=== PATIENT | female | born 1990 | race Caucasian/White ===

== ENCOUNTER 2017-04-26 15:44 | Emergency (ER) | payer MEDICAID, OTHER ==
[2017-04-26 15:49] VITALS: RESP 16
[2017-04-26] MEDS ORDERED: Sodium Chloride 0.9% 1,000 ML IV STA (16:21)
--- NOTE | 2017-04-26 16:23 | ED PDOC ---
HPI: Abdomen Time Seen by Provider: 04/26/17 15:52 Chief Complaint (Nursing): Abdominal Pain Chief Complaint (Provider): abdominal pain History Per: Patient Additional Complaint(s): 26-year-old female with no past medical history presents to emergency department with acute onset of lower abdominal pain. Patient states that she was at work and she got up to use the bathroom, and right after urinating she felt a sharp pain to lower abdomen. Patient called ambulance and was brought to ED immediately. Patient states several years ago she was told that she has ovarian cysts. She denies any vaginal bleeding or discharge. Patient denies any concern for STD. No associated fever or chills, nausea, vomiting or diarrhea. She rates pain upon arrival as a 10 out of 10. Past Medical History Reviewed: Historical Data, Nursing Documentation, Vital Signs Vital Signs: Last Vital Signs Temp 99.1 F 04/26/17 15:47 Pulse 88 04/26/17 15:47 Resp 16 04/26/17 15:47 BP 123/60 04/26/17 15:47 Pulse Ox 99 04/26/17 17:46 - Medical History PMH: Depression - Family History Family History: States: No Known Family Hx - Living Arrangements Living Arrangements: With Family - Social History Current smoker - smoking cessation education provided: No Alcohol: None Drugs: Denies - Home Medications Home Medications: Ambulatory Orders Medication Instructions Recorded Ibuprofen [Motrin] 600 mg PO Q6 PRN #15 tab 04/26/17 Nitrofurantoin Macrocrystals 100 mg PO BID #14 cap 04/26/17 [Macrobid] - Allergies Allergies/Adverse Reactions: Allergies Allergy/AdvReac Type Severity Reaction Status Date / Time No Known Allergies Allergy Verified 04/26/17 15:46 Review of Systems ROS Statement: Except As Marked, All Systems Reviewed And Found Negative Constitutional: Negative for: Fever Cardiovascular: Negative for: Chest Pain Gastrointestinal: Positive for: Abdominal Pain. Negative for: Nausea, Vomiting , Diarrhea, Constipation Genitourinary Female: Positive for: Pelvic Pain. Negative for: Vaginal Discharge, Vaginal Bleeding Physical Exam - Reviewed Nursing Documentation Reviewed: Yes Vital Signs Reviewed: Yes - Physical Exam Appears: Positive for: Well, Non-toxic, No Acute Distress Head Exam: Positive for: NORMOCEPHALIC Skin: Positive for: Normal Color Eye Exam: Positive for: Normal appearance Cardiovascular/Chest: Positive for: Regular Rate, Rhythm Respiratory: Positive for: Normal Breath Sounds. Negative for: Wheezing, Respiratory Distress Gastrointestinal/Abdominal: Positive for: Tenderness (suprapubic and bilateral adnexal regions, no rebound or guarding) Back: Positive for: Normal Inspection. Negative for: L CVA Tenderness, R CVA Tenderness Extremity: Positive for: Normal ROM. Negative for: Pedal Edema Neurologic/Psych: Positive for: Alert, Oriented - Laboratory Results Result Diagrams: 04/26/17 16:41 04/26/17 16:41 Urine POC: Negative Urine dip results: Positive for: Leukocyte Esterase (small), Blood (small) - ECG O2 Sat by Pulse Oximetry: 99 Pulse Ox Interpretation: Normal - Other Rad Transvaginal US X-Ray: Read By Radiologist X-Ray Interpretation: trace free fluid, no torsion Medical Decision Making Medical Decision Makin26 year old with acute onset of lower abdominal pain Plan: Transvaginal US - rule out torsion CBC CMP UA GC/CHL cultures IVF IV toradol US is normal. Pain resolved completely after toradol. Upon repeat examination , abdominal exam is now benign, patient feels much better. Leukocytes noted in urine, prescription given for Macrobid and Motrin. Patient was advised to drink plenty of fluids. Patient denies any concern for STD but agrees with sending cultures for gonorrhea and Chlamydia as precaution. Patient aware that if culture is positive, she will receive a phone call. Patient was referred to women[facility] clinic for follow-up. Disposition - Clinical Impression Clinical Impression: Urinary tract infection, Pelvic pain - Patient ED Disposition Is Patient to be Admitted: No Counseled Patient/Family Regarding: Studies Performed, Diagnosis, Need For Followup, Rx Given - Disposition [facility]errals: [facility] [Outside] Disposition: Routine/Home Disposition Time: 18:41 Condition: IMPROVED Additional Instructions: Take rx meds as directed. Drink plenty of fluids. Follow-up with women's clinic or [facility] in 2-3 days. Prescriptions: Ibuprofen [Motrin] 600 mg PO Q6 PRN #15 tab PRN Reason: Pain, Moderate (4-7) Nitrofurantoin Macrocrystals [Macrobid] 100 mg PO BID #14 cap Instructions: Urinary Tract Infection in Women (ED), Pelvic Pain in Women (ED) Results - Lab Results Lab Results: 0604/26/17 04/26/17 17:20 16:41 16:41 WBC 11.9 H RBC 4.34 Hgb 13.0 Hct 38.5 MCV 88.8 MCH 30.1 MCHC 33.9 RDW 12.8 Plt Count 286 MPV 8.5 Neut % (Auto) 69.8 Lymph % (Auto) 20.3 [place] % (Auto) 8.4 Eos % (Auto) 0.9 Baso % (Auto) 0.6 Neut # 8.3 H Lymph # 2.4 [place] # 1.0 H Eos # 0.1 Baso # 0.1 Sodium 139 Potassium 4.4 Chloride 102 Carbon Dioxide 27 Anion Gap 15 BUN 12 Creatinine 0.6 L Est GFR ( Amer) > 60 Est GFR (Non-Af Amer) > 60 Random Glucose 96 Calcium 9.2 Total Bilirubin 0.5 AST 29 ALT 41 Alkaline Phosphatase 78 Total Protein 7.9 Albumin 4.7 Globulin 3.2 Albumin/Globulin Ratio 1.4 Urine Color Yellow Urine Clarity Clear Urine pH 7.0 Ur Specific [place] 1.017 Urine Protein Negative Urine Glucose (UA) Neg Urine Ketones Negative Urine Blood Small Urine Nitrate Negative Urine Bilirubin Negative Urine Urobilinogen 0.2-1.0 Ur Leukocyte Esterase Mod Urine RBC (Auto) 12 H Urine Microscopic WBC 3 Ur Squamous Epith Cells 3 Calcium Oxalate Crystal Rare
[2017-04-26 16:53] LABS: BASO # 0.1 K/uL (0.0-0.2); BASO % 0.6 % (0.0-2.0); EOS # 0.1 K/uL (0.0-0.7); EOS % 0.9 % (0.0-4.0); HEMATOCRIT 38.5 % (34.0-47.0); LYMPH # 2.4 K/uL (1.0-4.3); LYMPH % 20.3 % (20.0-40.0); MEAN CELL VOLUME 88.8 fl (81.0-99.0); MEAN CORPUSCULAR HEMOGLOBIN 30.1 pg (27.0-31.0); MEAN CORPUSCULAR HGB CONC 33.9 g/dL (33.0-37.0); MEAN PLATELET VOLUME 8.5 fl (7.2-11.7); MONO % 8.4 % (0.0-10.0); NEUT # 8.3 K/uL (1.8-7.0); NEUT % 69.8 % (50.0-75.0); NRBC % 0.1 % (0.0-0.0); RED CELL DISTRIBUTION WIDTH 12.8 % (11.5-14.5); WHITE BLOOD COUNT 11.9 K/uL (4.8-10.8)
[2017-04-26 17:11] LABS: ALB/GLOB RATIO 1.4 (1.0-2.1); ALKALINE PHOSPHATASE 78 U/L (38-126); ALT/SGPT 41 U/L (9-52); AST/SGOT 29 U/L (14-36); BILIRUBIN,TOTAL 0.5 mg/dl (0.2-1.3); BLOOD UREA NITROGEN 12 mg/dl (7-17); CALCIUM 9.2 mg/dL (8.4-10.2); CARBON DIOXIDE 27 mmol/L (22-30); CHLORIDE 102 mmol/L (98-107); GFR AFRICAN-AMERICAN > 60; GLUCOSE,RANDOM 96 mg/dL (65-105); POTASSIUM 4.4 MMOL/L (3.6-5.0); SODIUM 139 mmol/l (132-148); TOTAL PROTEIN 7.9 G/DL (6.3-8.2)
[2017-04-26 17:40] LABS: RBC URINE 12 /hpf (0-3); URINE BILIRUBIN NEGATIVE (NEGATIVE); URINE BLOOD SMALL (NEGATIVE); URINE CALCIUM OXALATE CRYSTALS RARE /hpf (<OCC); URINE COLOR YELLOW (YELLOW); URINE GLUCOSE (UA) NEG (Normal); URINE KETONE NEGATIVE (NEGATIVE); URINE LEUKOCYTE ESTERASE MOD Leu/uL (Negative); URINE PROTEIN NEGATIVE (NEGATIVE); URINE UROBILINOGEN 0.2-1.0 mg/dL (0.2-1.0); WBC URINE 3 /hpf (0-5)
--- NOTE | 2017-04-26 18:12 | US ---
HISTORY: acute onset of pelvic pain, rule out torsion COMPARISON: None available. TECHNIQUE: Transvaginal pelvic ultrasound FINDINGS: UTERUS: Measures 8.4 x 4.6 x 4.4 cm. Anteverted. ENDOMETRIUM: Measures 8 mm in diameter. CERVIX: No cervical abnormality identified. RIGHT OVARY: Measures 2.7 x 1.7 x 1.7 cm. Follicles. Blood flow is demonstrated. LEFT OVARY: Measures 3.3 x 1.7 x 2.8 cm. Follicles. Blood flow is demonstrated. FREE FLUID: Small pelvic free fluid. OTHER FINDINGS: None. IMPRESSION: Small pelvic free fluid.
[2017-04-26 19:04] VITALS: BP 122/73; PULSE 80; TEMP 98
[2017-04-26 19:07] VITALS: O2SAT 99
== END 2017-04-26 19:39 | disposition home or self-care (01) ==
LOC: H.ER 15:44
DX: N39.0 Urinary tract infection, site not specified (principal); R10.2 Pelvic and perineal pain

== ENCOUNTER 2017-08-28 15:45 | Emergency (ER) | payer MEDICAID ==
[2017-08-28 15:55] VITALS: BP 126/70; PULSE 86; RESP 16; TEMP 99.8; O2SAT 100
[2017-08-28] MEDS ORDERED: Alum-Mag Hydrox-Simethicone Susp (30 mL) PO ONE (16:14)
[2017-08-28] MEDS ORDERED: Sodium Chloride 0.9% 1,000 ML IV STA (16:14)
--- NOTE | 2017-08-28 16:23 | ED PDOC ---
HPI: General Adult Time Seen by Provider: 08/28/17 16:01 Chief Complaint (Nursing): Abdominal Pain History Per: Patient Additional Complaint(s): Pt. states for the past 3 weeks she's had ~10 episodes of non-bloody watery diarrhea/day and nausea (no vomiting). Pt. states 1.5 weeks ago she developed epigastric abdominal pain which is intermittent and is worse after eating. Pt. states she's had a decreased appetite that comes along with the pain. Denies recent travel, sick contacts, melena, hematochezia, BRBPR, fever, hematemesis, previous abdominal surgeries, chest pain, SOB. Past Medical History Reviewed: Historical Data, Nursing Documentation, Vital Signs Vital Signs: Last Vital Signs Temp 99.8 F H 08/28/17 15:53 Pulse 86 08/28/17 15:53 Resp 16 08/28/17 15:53 BP 126/70 08/28/17 15:53 Pulse Ox 100 08/28/17 16:24 - Medical History PMH: Depression, Gastritis Denies: Diabetes, Hepatitis, HIV, HTN, Seizures, Sexually Transmitted Disease - Family History Family History: States: No Known Family Hx - Immunization History Hx Tetanus Toxoid Vaccination: No Hx Influenza Vaccination: No Hx Pneumococcal Vaccination: No - Home Medications Home Medications: Ambulatory Orders Medication Instructions Recorded Ciprofloxacin [Cipro] 1 tab PO BID #14 tab 07/18/17 metroNIDAZOLE [Flagyl] 500 mg PO BID #14 tab 07/18/17 Dicyclomine [Bentyl] 20 mg PO Q8 PRN #15 tab 08/28/17 Famotidine [Pepcid] 20 mg PO DAILY PRN #14 tab 08/28/17 Ondansetron ODT [Zofran ODT] 4 mg PO TID #20 odt 08/28/17 - Allergies Allergies/Adverse Reactions: Allergies Allergy/AdvReac Type Severity Reaction Status Date / Time No Known Allergies Allergy Verified 08/28/17 15:53 Review of Systems ROS Statement: Except As Marked, All Systems Reviewed And Found Negative Gastrointestinal: Positive for: Nausea, Abdominal Pain, Diarrhea Physical Exam - Reviewed Nursing Documentation Reviewed: Yes Vital Signs Reviewed: Yes - Physical Exam Appears: Positive for: Well, Non-toxic, No Acute Distress Head Exam: Positive for: ATRAUMATIC, NORMAL INSPECTION, NORMOCEPHALIC Skin: Positive for: Normal Color, Warm. Negative for: Rash Eye Exam: Positive for: EOMI, Normal appearance, PERRL ENT: Positive for: Normal ENT Inspection Neck: Positive for: Normal, Painless ROM Cardiovascular/Chest: Positive for: Regular Rate, Rhythm Respiratory: Positive for: CNT, Normal Breath Sounds Gastrointestinal/Abdominal: Positive for: Normal Exam, Bowel Sounds, Soft, Other (Negative Franco's sign.). Negative for: Tenderness Back: Positive for: Normal Inspection Extremity: Positive for: Normal ROM Neurologic/Psych: Positive for: Alert, Oriented. Negative for: Aphasia, Facial Droop - Laboratory Results Result Diagrams: 08/28/17 17:20 08/28/17 17:20 Urine POC: Negative - ECG O2 Sat by Pulse Oximetry: 100 - CT Scan/US Abd US Other Rad Studies (CT/US): Read By Radiologist (normal study) - Progress ED Course And Treament: Labs ordered. Abd US ordered. Zofran 4mg IV, pepcid 20mg IV, maalox 30ml PO, viscous lidocaine 15ml PO, IV NS bolus ordered. Re-evaluation Time: 18:25 (Pt. reports complete relief of abdominal pain. ) Condition: Re-examined, Improved Disposition - Clinical Impression Clinical Impression: Diarrhea, Abdominal pain - Patient ED Disposition Is Patient to be Admitted: No - Disposition Referrals: Joshua Collins MD, PhD [Staff Provider] - [facility] [Outside] Disposition: Routine/Home Disposition Time: 18:28 Condition: STABLE Prescriptions: Dicyclomine [Bentyl] 20 mg PO Q8 PRN #15 tab PRN Reason: abdominal pain Famotidine [Pepcid] 20 mg PO DAILY PRN #14 tab PRN Reason: Dyspepsia Ondansetron ODT [Zofran ODT] 4 mg PO TID #20 odt Instructions: Acute Diarrhea (ED), Acute Abdominal Pain (ED) Forms: [facility] [facility] ([place]ian) Print Language: SERBIAN
[2017-08-28] MEDS ORDERED: Alum-Mag Hydrox-Simethicone Susp (30 mL) ONE (17:19)
[2017-08-28 17:27] LABS: BASO % 0.4 % (0.0-2.0); EOS # 0.1 K/uL (0.0-0.7); EOS % 1.2 % (0.0-4.0); HEMATOCRIT 39.7 % (34.0-47.0); LYMPH # 2.4 K/uL (1.0-4.3); LYMPH % 22.9 % (20.0-40.0); MEAN CELL VOLUME 88.2 fl (81.0-99.0); MEAN CORPUSCULAR HEMOGLOBIN 29.7 pg (27.0-31.0); MEAN CORPUSCULAR HGB CONC 33.6 g/dL (33.0-37.0); MEAN PLATELET VOLUME 8.6 fl (7.2-11.7); MONO # 0.7 K/uL (0.0-0.8); NEUT # 7.1 K/uL (1.8-7.0); NEUT % 68.5 % (50.0-75.0); RED CELL DISTRIBUTION WIDTH 12.7 % (11.5-14.5); WHITE BLOOD COUNT 10.3 K/uL (4.8-10.8)
[2017-08-28 17:45] LABS: ALB/GLOB RATIO 1.4 (1.0-2.1); ALKALINE PHOSPHATASE 73 U/L (38-126); ALT/SGPT 31 U/L (9-52); AST/SGOT 29 U/L (14-36); BILIRUBIN,TOTAL 0.6 mg/dl (0.2-1.3); BLOOD UREA NITROGEN 11 mg/dl (7-17); CALCIUM 9.7 mg/dL (8.4-10.2); CARBON DIOXIDE 25 mmol/L (22-30); CHLORIDE 104 mmol/L (98-107); GFR AFRICAN-AMERICAN > 60; GLUCOSE,RANDOM 90 mg/dL (65-105); LIPASE 44 U/L (23-300); SODIUM 142 mmol/l (132-148); TOTAL PROTEIN 8.3 G/DL (6.3-8.2)
[2017-08-28 17:47] LABS: POTASSIUM 4.3 MMOL/L (3.6-5.0)
--- NOTE | 2017-08-28 17:50 | US ---
HISTORY: abdominal pain COMPARISON: None available. TECHNIQUE: Sonographic evaluation of the abdomen. FINDINGS: LIVER: Measures 15.4 cm in sagittal dimension and appears within normal limits of size, shape, and echotexture. No focal hepatic mass identified. The main portal vein appears patent with normal directional flow. No intrahepatic bile duct dilatation. GALLBLADDER: No gallstones. No gallbladder wall thickening. Negative sonographic Franco's sign as assessed by the slot machine department floorperson. COMMON BILE DUCT: Measures 3 mm. PANCREAS: Not well visualized. RIGHT KIDNEY: Measures 11.5 x 4.9 x 3.7cm. No obstructing calculus or hydronephrosis identified. LEFT KIDNEY: Measures 10.9 x 4.2 x 4.1cm. No obstructing calculus or hydronephrosis identified. SPLEEN: Measures approximately 9.7 cm. AORTA: Limited views appear unremarkable. IVC: Limited views appear unremarkable. OTHER FINDINGS: None. IMPRESSION: No acute findings.
[2017-08-28 18:01] LABS: RBC URINE 10 /hpf (0-3); URINE BILIRUBIN NEGATIVE (NEGATIVE); URINE BLOOD MODERATE (NEGATIVE); URINE COLOR YELLOW (YELLOW); URINE GLUCOSE (UA) NEG (Normal); URINE KETONE NEGATIVE (NEGATIVE); URINE LEUKOCYTE ESTERASE NEG Leu/uL (Negative); URINE PROTEIN NEGATIVE (NEGATIVE); URINE UROBILINOGEN 0.2-1.0 mg/dL (0.2-1.0); WBC URINE 1 /hpf (0-5)
== END 2017-08-28 18:42 | disposition home or self-care (01) ==
LOC: H.ER 15:45
DX: R10.9 Unspecified abdominal pain (principal); R19.7 Diarrhea, unspecified; R10.13 Epigastric pain
CPT/HCPCS: 76700; 80053; 81003; 81025; 83690; 85025; 96361; 96374; 96375; 99283; J2405; J7040

== ENCOUNTER 2017-11-20 13:39 | Emergency (ER) | payer MEDICAID | END 2017-11-20 14:30 | disposition left against medical advice (07) | LOC: H.ER 13:39 | DX: Z02.89 Encounter for other administrative examinations (principal) ==

== ENCOUNTER 2017-12-22 07:06 | Emergency (ER) | payer MEDICAID ==
--- NOTE | 2017-12-22 07:19 | ED PDOC ---
HPI: Female Pain Time Seen by Provider: 12/22/17 07:13 History Per: Patient Onset/Duration Of Symptoms: Days (1) Current Symptoms Are (Timing): Still Present Quality Of Discomfort: Burning Associated Symptoms: Urinary Symptoms Additional Complaint(s): Vaginal bleeding assoc with lower abd cramping started with burning on urination last night. Approx 10 weeks preg. Past Medical History - Medical History PMH: Depression, Gastritis Denies: Diabetes, Hepatitis, HIV, HTN, Seizures, Sexually Transmitted Disease - Family History Family History: States: Unknown Family Hx - Immunization History Hx Tetanus Toxoid Vaccination: No Hx Influenza Vaccination: No Hx Pneumococcal Vaccination: No - Home Medications Home Medications: Ambulatory Orders Medication Instructions Recorded Multivit/Folic Acid/I 1 tab PO DAILY 11/20/17 [ Plus] - Allergies Allergies/Adverse Reactions: Allergies Allergy/AdvReac Type Severity Reaction Status Date / Time No Known Allergies Allergy Verified 08/28/17 15:53 Review of Systems Gastrointestinal: Positive for: Abdominal Pain Genitourinary Female: Positive for: Dysuria, Vaginal Bleeding Physical Exam - Physical Exam Appears: Positive for: Non-toxic, No Acute Distress Skin: Positive for: Normal Color, Warm, DRY Gastrointestinal/Abdominal: Positive for: Bowel Sounds, Soft, Tenderness ( suprapubic) Pelvic Exam: Positive for: External Exam Normal. Negative for: Active Bleeding , Blood, Mass, Tender Adnexa, Tender Uterus Extremity: Positive for: Normal ROM - Laboratory Results Result Diagrams: 12/22/17 08:15 12/22/17 09:00 Disposition - Clinical Impression Clinical Impression: Threatened miscarriage - Patient ED Disposition Is Patient to be Admitted: No Counseled Patient/Family Regarding: Studies Performed, Diagnosis, Need For Followup - Disposition Disposition: Routine/Home Disposition Time: 11:44 Condition: FAIR Instructions: Threatened Miscarriage
[2017-12-22 08:20] VITALS: PULSE 97; RESP 18; TEMP 97.2; O2SAT 100
[2017-12-22 08:24] LABS: BASO % 0.3 % (0.0-2.0); EOS # 0.1 K/uL (0.0-0.7); EOS % 0.6 % (0.0-4.0); HEMOGLOBIN 12.5 g/dL (12.0-16.0); LYMPH # 1.6 K/uL (1.0-4.3); LYMPH % 16.8 % (20.0-40.0); MEAN CORPUSCULAR HEMOGLOBIN 30.5 pg (27.0-31.0); MEAN CORPUSCULAR HGB CONC 34.2 g/dL (33.0-37.0); MEAN PLATELET VOLUME 8.5 fl (7.2-11.7); MONO # 0.6 K/uL (0.0-0.8); MONO % 5.8 % (0.0-10.0); NEUT # 7.4 K/uL (1.8-7.0); NEUT % 76.5 % (50.0-75.0); NRBC % 0.1 % (0.0-0.0); RBC 4.12 Mil/uL (3.80-5.20); RED CELL DISTRIBUTION WIDTH 12.8 % (11.5-14.5); WHITE BLOOD COUNT 9.7 K/uL (4.8-10.8)
[2017-12-22 09:25] LABS: ALB/GLOB RATIO 1.3 (1.0-2.1); ALBUMIN 4.3 g/dL (3.5-5.0); ALT/SGPT 29 U/L (9-52); AST/SGOT 19 U/L (14-36); BLOOD UREA NITROGEN 7 mg/dl (7-17); CALCIUM 9.6 mg/dL (8.4-10.2); GFR AFRICAN-AMERICAN > 60; GFR NON-AFRICAN AMERICAN > 60
--- NOTE | 2017-12-22 13:50 | US ---
PROCEDURE: HISTORY: vag bleed COMPARISON: TECHNIQUE: FINDINGS: Single live intrauterine gestation with a crown-rump length of 2.8 centimeters corresponding to 9 weeks and 4 days gestational age. heart motion identified. Right ovary not identified. Left ovary within normal limits. IMPRESSION: As above
== END 2017-12-22 12:54 | disposition home or self-care (01) ==
LOC: H.ER 07:06
DX: O20.0 Threatened abortion (principal); F32.9 Major depressive disorder, single episode, unspecified

== ENCOUNTER 2018-01-23 18:50 | Emergency (ER) | payer MEDICAID ==
[2018-01-23 18:56] VITALS: TEMP 98.3; O2SAT 100
--- NOTE | 2018-01-23 20:19 | ED PDOC ---
HPI: Abdomen Time Seen by Provider: 01/23/18 19:16 Chief Complaint (Nursing): GI Problem Chief Complaint (Provider): Nausea, Vomiting, Abdominal Pain History Per: Patient History/Exam Limitations: no limitations Onset/Duration Of Symptoms: Other (throughout ) Current Symptoms Are (Timing): Still Present Additional Complaint(s): 27 y/o female with a pmhx of ovarian cysts, who presents to the ED complaining of nausea and vomiting in . Patient states she has had hyperemesis throughout this , but reports her nausea and vomiting are worse today. Also reports 2 episodes of clear discharge with the first 2 weeks ago. States her OB Dr. Avila advised her this is normal, but states she had a 2nd episode of discharge today. Denies vaginal bleeding. Also complaining of epigastric pain and lower abdominal pain consistent with what she experienced before when she had an ovarian cyst. . PMD: Dr. Rehman Past Medical History Reviewed: Historical Data, Nursing Documentation, Vital Signs Vital Signs: Last Vital Signs Temp 98.3 F 01/23/18 18:52 Pulse 88 01/23/18 23:59 Resp 16 01/23/18 23:59 BP 111/63 01/23/18 23:59 Pulse Ox 100 01/23/18 23:59 - Medical History PMH: Depression, Gastritis Denies: Diabetes, Hepatitis, HIV, HTN, Seizures, Sexually Transmitted Disease - Surgical History Other surgeries: Ovarian cyst removal - Family History Family History: States: Unknown Family Hx - Social History Current smoker - smoking cessation education provided: No Alcohol: None Drugs: Denies - Immunization History Hx Tetanus Toxoid Vaccination: No Hx Influenza Vaccination: No Hx Pneumococcal Vaccination: No - Home Medications Home Medications: Ambulatory Orders Medication Instructions Recorded Multivit/Folic Acid/I 1 tab PO DAILY 11/20/17 [ Plus] Nitrofurantoin Macrocrystals 100 mg PO BID #20 cap 12/22/17 [Macrobid] Doxylamine/Pyridoxine HCl (B6) 1 - 2 each PO HS #16 tablet. 01/23/18 [Rock Reynoso 10-10 mg Tablet] Famotidine [Pepcid] 20 mg PO Q12 #14 tab 01/23/18 - Allergies Allergies/Adverse Reactions: Allergies Allergy/AdvReac Type Severity Reaction Status Date / Time No Known Allergies Allergy Verified 01/23/18 18:52 Review of Systems ROS Statement: Except As Marked, All Systems Reviewed And Found Negative Gastrointestinal: Positive for: Nausea, Vomiting, Abdominal Pain Genitourinary Female: Negative for: Vaginal Bleeding Physical Exam - Reviewed Nursing Documentation Reviewed: Yes Vital Signs Reviewed: Yes - Physical Exam Appears: Positive for: Non-toxic, No Acute Distress, Uncomfortable Head Exam: Positive for: ATRAUMATIC, NORMAL INSPECTION, NORMOCEPHALIC Skin: Negative for: Normal Color (pale) Eye Exam: Positive for: EOMI, Normal appearance, PERRL ENT: Negative for: Normal ENT Inspection (mucous membranes dry) Neck: Positive for: Normal, Painless ROM, Supple Cardiovascular/Chest: Positive for: Regular Rate, Rhythm. Negative for: Murmur Respiratory: Positive for: Normal Breath Sounds. Negative for: Respiratory Distress Gastrointestinal/Abdominal: Positive for: Tenderness (epigastric tenderness) Back: Positive for: Normal Inspection. Negative for: L CVA Tenderness, R CVA Tenderness, Vertebral Tenderness Extremity: Positive for: Normal ROM. Negative for: Pedal Edema, Deformity Neurologic/Psych: Positive for: Alert, Oriented. Negative for: Motor/Sensory Deficits - Laboratory Results Result Diagrams: 01/23/18 20:15 01/23/18 20:15 - ECG O2 Sat by Pulse Oximetry: 100 (RA) Pulse Ox Interpretation: Normal Medical Decision Making Medical Decision Making: Time: 19:28 Initial Impression: 27 y/o female with abdominal pain, epigastric pain, and clear vaginal discharge in setting of 2nd trimester Initial Plan: --Beta-HCG --CMP --Urine --CBC --Pepcid 20 mg IV --[place] 10mg IVPB --Heplock insertion --Accucheck --Urinalysis --US Gallbladder --US OB Transvaginal --Reevaluation Scribe Attestation: Documented by Jayant Mahmood, acting as a scribe for Mitchel Messer MD. Provider Scribe Attestation: All medical record entries made by the Scribe were at my direction and personally dictated by me. I have reviewed the chart and agree that the record accurately reflects my personal performance of the history, physical exam, medical decision making, and the department course for this patient. I have also personally directed, reviewed, and agree with the discharge instructions and disposition. Disposition - Clinical Impression Clinical Impression: Gastritis, Abdominal pain, - Disposition Disposition: Routine/Home Disposition Time: 23:30 Condition: STABLE Prescriptions: Doxylamine/Pyridoxine HCl (B6) [Rock Reynoso 10-10 mg Tablet] 1 - 2 each PO HS # 16 tablet. Famotidine [Pepcid] 20 mg PO Q12 #14 tab Instructions: Gastritis, Round Ligament Pain Forms: [employer] (Finnish)
[2018-01-23 20:23] LABS: BASO % 0.4 % (0.0-2.0); EOS % 0.4 % (0.0-4.0); HEMOGLOBIN 12.3 g/dL (12.0-16.0); LYMPH # 1.9 K/uL (1.0-4.3); LYMPH % 22.4 % (20.0-40.0); MEAN CELL VOLUME 88.5 fl (81.0-99.0); MEAN CORPUSCULAR HEMOGLOBIN 30.6 pg (27.0-31.0); MEAN CORPUSCULAR HGB CONC 34.6 g/dL (33.0-37.0); MONO # 0.6 K/uL (0.0-0.8); NEUT # 6.1 K/uL (1.8-7.0); NEUT % 69.8 % (50.0-75.0); NRBC % 0.1 % (0.0-0.0); RBC 4.02 Mil/uL (3.80-5.20); RED CELL DISTRIBUTION WIDTH 12.7 % (11.5-14.5); WHITE BLOOD COUNT 8.7 K/uL (4.8-10.8)
[2018-01-23 20:34] LABS: ALB/GLOB RATIO 1.1 (1.0-2.1); ALT/SGPT 31 U/L (9-52); AST/SGOT 19 U/L (14-36); BLOOD UREA NITROGEN 6 mg/dl (7-17); CALCIUM 9.3 mg/dL (8.4-10.2); GFR AFRICAN-AMERICAN > 60; GFR NON-AFRICAN AMERICAN > 60
[2018-01-23 20:42] LABS: SQUAMOUS EPITHIAL 1 /hpf (0-5); URINE BACTERIA RARE (<OCC); URINE BILIRUBIN NEGATIVE (NEGATIVE); URINE BLOOD NEGATIVE (NEGATIVE); URINE CLARITY SLIGHTY-CLOUDY (Clear); URINE COLOR YELLOW (YELLOW); URINE GLUCOSE (UA) >=500 mg/dL (Normal); URINE LEUKOCYTE ESTERASE NEG Leu/uL (Negative); URINE PROTEIN 30 mg/dL (NEGATIVE); URINE UROBILINOGEN 0.2-1.0 mg/dL (0.2-1.0)
--- NOTE | 2018-01-23 22:53 | US ---
EXAM: US Abdomen Limited, Right Upper Quadrant EXAM DATE/TIME: 01/23/2018 7:43 PM CLINICAL HISTORY: 27 years old, female; Pain; Abdominal pain; Epigastric; ; Additional info: Ruq pain TECHNIQUE: Real-time ultrasound of the right upper quadrant with image documentation. COMPARISON: There are no prior studies for comparison. FINDINGS: Liver: There is hepatopedal flow in the main portal vein. Liver is unremarkable. Gallbladder: Gallbladder is only partially distended with no stones, sludge or wall thickening. Common bile duct: Common bile duct measures approximate 4 mm in diameter. Pancreas: Pancreas is partially obscured by bowel gas. Right kidney: Right kidney is unremarkable. Aorta: Visualized portions of the aorta and inferior vena cava are unremarkable. IMPRESSION: No gallstones or ductal dilatation Patient was not tender over the gallbladder
--- NOTE | 2018-01-23 22:59 | US ---
EXAM: US After First Trimester, Transabdominal EXAM DATE/TIME: 01/23/2018 7:29 PM CLINICAL HISTORY: 27 years old, female; Signs and symptoms; Lmp 10/16/17; Antepartum complications; Other: Vomotting; ; Additional info: Preg vag bld TECHNIQUE: Real-time transabdominal obstetrical ultrasound of the maternal pelvis and a second or third trimester with image documentation. COMPARISON: Prior images are not available for review. FINDINGS: Fetus: There is a single living intrauterine gestation in cephalic presentation Heart rate: There is a heart rate of 150 beats per minute. Placenta: Placenta is fundal. There is no previa. Amniotic fluid: Amniotic fluid volume appears normal. Anatomy: Early gestational age limits evaluation of anatomy BIOMETRICS Gestational age by US: 14 weeks 3 days EFW: 91.3 g, 34.7% BPD: 2.76 cm, 14 weeks 6 days HC: 9.97 cm, 14 weeks 4 days AC: 7.33 cm, 13 weeks 6 days FL: 1.47 cm, 14 weeks 2 days MATERNAL: Cervix: Cervix measures approximately 5 cm in length Free fluid: There is no free fluid. IMPRESSION: 14 week 3 day single living cephalic fetus, estimated date of delivery 07/21/18
[2018-01-24 00:01] VITALS: BP 111/63; PULSE 88; RESP 16
== END 2018-01-23 23:59 | disposition home or self-care (01) ==
LOC: H.ER 18:50
DX: O26.892 Other specified pregnancy related conditions, second trimester (principal); O99.612 Diseases of the digestive system complicating pregnancy, second trimester; Z3A.14 14 weeks gestation of pregnancy; K29.70 Gastritis, unspecified, without bleeding; O99.342 Other mental disorders complicating pregnancy, second trimester; F32.9 Major depressive disorder, single episode, unspecified
CPT/HCPCS: 76705; 76815; 80053; 81003; 81025; 83690; 84702; 85025; 96374; 96375; 99284; J2765

== ENCOUNTER 2018-02-16 20:25 | Emergency (ER) | payer MEDICAID ==
[2018-02-16 21:02] VITALS: BMI 31.0
[2018-02-16 21:25] LABS: BASO % 0.4 % (0.0-2.0); EOS # 0.1 K/uL (0.0-0.7); EOS % 0.9 % (0.0-4.0); HEMOGLOBIN 10.6 g/dL (12.0-16.0); LYMPH # 1.9 K/uL (1.0-4.3); LYMPH % 21.8 % (20.0-40.0); MEAN CELL VOLUME 89.6 fl (81.0-99.0); MEAN CORPUSCULAR HEMOGLOBIN 31.7 pg (27.0-31.0); MEAN CORPUSCULAR HGB CONC 35.4 g/dL (33.0-37.0); MONO # 0.7 K/uL (0.0-0.8); MONO % 7.5 % (0.0-10.0); NEUT # 6.1 K/uL (1.8-7.0); NEUT % 69.4 % (50.0-75.0); RBC 3.35 Mil/uL (3.80-5.20); RED CELL DISTRIBUTION WIDTH 12.9 % (11.5-14.5); WHITE BLOOD COUNT 8.8 K/uL (4.8-10.8)
[2018-02-16 21:29] LABS: SQUAMOUS EPITHIAL < 1 /hpf (0-5); URINE BILIRUBIN NEGATIVE (NEGATIVE); URINE BLOOD SMALL (NEGATIVE); URINE CLARITY CLEAR (Clear); URINE COLOR STRAW (YELLOW); URINE GLUCOSE (UA) 50 mg/dL (Normal); URINE LEUKOCYTE ESTERASE NEG Leu/uL (Negative); URINE PROTEIN NEGATIVE (NEGATIVE); URINE UROBILINOGEN 0.2-1.0 mg/dL (0.2-1.0)
--- NOTE | 2018-02-16 21:54 | OBHP ---
Datetime: 02/16/2018 21:05 IP Adm Impression: , intrauterine ; No Active Labor; Intact Membranes IP Admit Plan: Observation/Evaluation Admit Comment, IP Provider: This is 27 y/o F, , comes to the clinic c/o right side lower back pa in and bleeding (Annotations: Data stored by CPN on behalf of user) Pelvic Type - PN: Adequate Extremities - PN: Normal Abdomen - PN: Normal Back - PN: Normal Lungs - PN: Normal Heart - PN: Normal Neurologic - PN: Normal HEENT - PN: Normal General - PN: Normal Comments, ACOG Physical Exam: No Bleeding Doppler U/S: + for heartbeats Vital Signs Provider: Reviewed; Within Normal Limits IP Chief Complaint: Decreased movement; Vaginal bleeding Genitourinary Exam: Normal
[2018-02-17 03:31] VITALS: BP 122/69; PULSE 108; O2SAT 96
== END 2018-02-16 22:35 | disposition home or self-care (01) ==
LOC: H.EROB2 20:25
DX: O26.92 Pregnancy related conditions, unspecified, second trimester (principal); M54.5 Low back pain; O20.9 Hemorrhage in early pregnancy, unspecified; Z3A.18 18 weeks gestation of pregnancy

== ENCOUNTER 2018-05-05 12:06 | Emergency (ER) | payer MEDICAID ==
[2018-05-05 12:48] VITALS: BMI 27.4
[2018-05-05] MEDS ORDERED: Lactated Ringer's 1,000 ML IV SCH ×2 (13:00→15:00)
[2018-05-05 14:02] LABS: SQUAMOUS EPITHIAL 16 /hpf (0-5); URINE BACTERIA RARE (<OCC); URINE BILIRUBIN NEGATIVE (NEGATIVE); URINE BLOOD SMALL (NEGATIVE); URINE CLARITY CLOUDY (Clear); URINE COLOR YELLOW (YELLOW); URINE GLUCOSE (UA) 50 mg/dL (Normal); URINE LEUKOCYTE ESTERASE NEG Leu/uL (Negative); URINE PROTEIN 30 mg/dL (NEGATIVE); URINE UROBILINOGEN 0.2-1.0 mg/dL (0.2-1.0)
--- NOTE | 2018-05-05 16:11 | US ---
PROCEDURE: Ultrasound of the Kidneys HISTORY: Abdominal pain to groin COMPARISON: Abdominal ultrasound dated 08/28/2017. TECHNIQUE: Sonogram of the kidneys. FINDINGS: RIGHT KIDNEY: Measures: 11.9 x 5.3 x 6.4 cm. Normal in size, contour and echogenicity. No stone, solid mass lesion or hydronephrosis visualized. LEFT KIDNEY: Measures: 11.6 x 4.1 x 4.7 cm. Normal in size, contour and echogenicity. No stone, solid mass lesion or hydronephrosis visualized. OTHER FINDINGS: None. IMPRESSION: Unremarkable renal sonogram.
[2018-05-05 21:36] VITALS: BP 93/47; PULSE 79; RESP 18; O2SAT 100
--- NOTE | 2018-05-05 22:37 | OBHP ---
Datetime: 05/05/2018 13:54 IP Adm Impression: , intrauterine IP Chief Complaint Other: Abdominal Pain to groin Admit Comment, IP Provider: Pt is a 27 yo her OSMANY is 07/23/18 based on her LMP of 10/16/17 jacinto martin has no documentation of her U/S or records. Presented to the [facility] for B/L LBP radiatin g to her right side and leg. Her provider is Dr. Heart. Patient is 29 weeks gestation and de nies any complications with current . Patient states she has bright red blood in urine and b urning on urination with normal discharge. Patient complains of dizziness on standing and nausea. Jacinto martin denies contractions, leakage of fluid. Pmhx: patient has asthma denies needing medication for severity Meds: none Allergies:NKDA OBhx: Patient has had 1 vaginal delivery in 2000 denies any complications Pgynhx: Patient has ovarian cysts found Nov 2017 which is when she found out she was , den ies any STI infections Fhx- patient denies any family illnesses Social Hx: Patient denies smoking, alcohol or drug use PSurgx: none ROS: Denies dizziness, H/A, blurry vision, Chest pain, SOB, N/V, pain, burning on urination PNL: Patient did not bring labs, heart rate reactive moderate baseline of 140 PE: Gen:Patient is uncomfortable lying in bed on her left side complainign of pain, AAOx3 HEENT: NCAT, PERRLA Heart: +s1,S2RRR, no murmurs rubs or gallops Lungs: slight wheezing on auscualtion GI: patient has some diarrhea, normal bowel sounds Genitourinary: Burning on urination, spots of blood in urine Neuro: denies weakness, or decreased sensation Urine Culture: Specific gravity 1.024 Renal U/S findings: Renal U/S normal no evidence of stone mass lesion or hydronephrosis Impression: 28.5 weeks presenting with LBP, no evidence of labor, UTI or Nephro plan Plan Have patient drink lots of fluids Follow up within this week patient states she has an appointment with her OB doctor tomorrow OB attending addendum: Patient seen and examined by me agree with above history and assessment and plan with following mo dification and clarifications. Patient complains of bilateral lower back pain with radiation to bilateral inguinal areas and down right lower hip and thigh area. She patient states pain has been going on for 2 days initially it wa s intermittent but since early in the morning it has been constant she rates as 7 out of 10. She georgina es any aggravating factors. Her last episode of coitus was 3 days ago. She denies uterine contraction spontaneous leakage of membranes or problems with her . She reports good movement. Sh e states she has noticedsome vaginal discharge which is nonodorous and nonirritating. She states she noticed Amounts of red blood she was urinating. Assessment history: The patient states she has a history of asthma and usually takes premedication s 1-year-old F1 steroid inhalant and patient isn't sure third one. She states that she has required n o medication during O: POx room air 100% UA positive for small amount of RBCs. Chest: Clear to auscultation Impression: Bilateral lower back pain with no evidence of urinary tract disorder Lower back pain likely musculoskeletal due to No evidence of threatened labor Plan: Increase water intake #1 number to follow-up with OB doctor tomorrow as scheduled. #3 labo r precautions. PCP regarding history of asthma. Pelvic Type - PN: Adequate Extremities - PN: Normal Abdomen - PN: Normal Back - PN: Normal Breast - PN: Not Done Lungs - PN: Abnormal Heart - PN: Normal Thyroid - PN: Not Done Neurologic - PN: Normal HEENT - PN: Normal General - PN: Normal FHR - Baseline A Provider: 140 Contraction Comments Provider: None Comments, ACOG Physical Exam: Patient complains of B/L LBP radiates to right side of leg EGA AdmitDate IP: 28.5 Vital Signs Provider: Reviewed; Within Normal Limits IP Chief Complaint: Other NICHD Variability Prov Fetus A: Moderate 6-25bpm NICHD Accel Fetus A IP Provider: [id number] FHR Category Provider Fetus A: Category I NICHD Decel Fetus A IP Provider: None Genitourinary Exam: Normal DTRs - PN: Normal
== END 2018-05-05 16:45 | disposition home or self-care (01) ==
LOC: H.EROB2 12:06
DX: O26.893 Other specified pregnancy related conditions, third trimester (principal); M54.5 Low back pain; Z3A.28 28 weeks gestation of pregnancy